=== PATIENT | female | born 1985 | race Caucasian/White ===

== ENCOUNTER 2020-06-27 10:21 | Emergency (ER) | payer SELFPAY ==
[~2020-06-27] VITALS: Ht 165.1 cm; Wt 50.0 kg
[2020-06-27] MEDS ORDERED: VIBRAMYCIN HYC100 MG PO (11:17)
[2020-06-27 11:40] VITALS: BP 116/72
== END 2020-06-27 11:38 | disposition home or self-care (01) ==
LOC: ED 10:21
DX: L72.3 Sebaceous cyst (principal); F29 Unspecified psychosis not due to a substance or known physiological condition; Z83.3 Family history of diabetes mellitus

== ENCOUNTER 2021-09-01 22:39 | Emergency (ER) | payer SELFPAY ==
[~2021-09-01] VITALS: Ht 165.1 cm; Wt 50.0 kg
[~2021-09-01 22:39] MED LIST: PREDNISONE20 M1 PO; VIBRAMYCIN HYC100 MG PO
[2021-09-02 00:15] VITALS: BP 126/78
== END 2021-09-02 00:15 | disposition home or self-care (01) ==
LOC: ED 22:39
DX: R05.9 Cough, unspecified (principal)

== ENCOUNTER 2021-09-29 03:18 | Emergency (ER) | payer SELFPAY ==
[~2021-09-29] VITALS: Ht 165.1 cm; Wt 47.7 kg
[2021-09-29] MEDS ORDERED: PROVENTIL0.09 MG/A1 IH (03:35)
[2021-09-29 04:16] LABS: HEMATOCRIT 36.9 % (37.0-47.0); HEMOGLOBIN 12.2 g/dL (12.5-16.0); MEAN CELL VOLUME 80 fl (78-100); MEAN CORPUSCULAR HEMOGLOBIN 26 pg (27-31); MEAN CORPUSCULAR HGB CONC 33 g/dL (33-37); MEAN PLATELET VOLUME 10.4 fl (7.4-10.4); PLATELET COUNT 332 K/mm3 (130-400); RED BLOOD COUNT 4.62 M/mm3 (4.10-5.30); RED CELL DISTRIBUTION WIDTH 13.7 % (11.5-14.5); WHITE BLOOD COUNT 17.4 K/mm3 (4.8-10.8)
[2021-09-29 04:25] LABS: ALBUMIN 3.6 g/dL (3.5-5.0); POTASSIUM 3.7 mmol/L (3.5-5.1)
[2021-09-29 04:28] LABS: TOTAL PROTEIN 6.9 g/dL (6.4-8.3)
[2021-09-29 04:30] LABS: TOTAL BILIRUBIN 0.4 mg/dL (0.2-1.2)
[2021-09-29 04:32] LABS: URINE APPEARANCE CLOUDY; URINE BILIRUBIN NEGATIVE (NEGATIVE); URINE BLOOD 50 ery/uL (NEGATIVE); URINE COLOR YELLOW; URINE GLUCOSE NEGATIVE (NEGATIVE); URINE KETONE NEGATIVE (NEGATIVE); URINE LEUKOCYTE ESTERASE TRACE (NEGATIVE); URINE NITRATE POSITIVE (NEGATIVE); URINE PROTEIN(semi-quant) 1+ (NEGATIVE); URINE UROBILINOGEN 8 mg/dL (NORMAL); URINE WBC 16-30 /hpf (0-3)
[2021-09-29 04:36] LABS: BAND 1 % (0-10); NEUTROPHILS 79 % (42-75)
[2021-09-29 04:37] LABS: LYMPHOCYTE 10 % (20-51); MONOCYTE 9 % (3-10)
[2021-09-29] MEDS ORDERED: CIPRO500 M1 PO (05:10)
[2021-09-29] MEDS ORDERED: RT ALBUTEROL CC18 GM IH (05:10)
[2021-09-29 06:24] VITALS: BP 94/60
== END 2021-09-29 06:24 | disposition home or self-care (01) ==
LOC: ED 03:18
PROVIDERS: Family Medicine
DX: R05.9 Cough, unspecified (principal)
CPT/HCPCS: J0696; J1885; J7030

== ENCOUNTER 2021-12-27 04:07 | Emergency (ER) | payer SELFPAY ==
[~2021-12-27] VITALS: Ht 165.1 cm; Wt 47.6 kg
[~2021-12-27 04:07] MED LIST changes: +CIPRO500 M1 PO; +PROVENTIL0.09 MG/A1 IH; +RT ALBUTEROL CC18 GM IH
[2021-12-27 04:10] VITALS: BP 108/83
[2021-12-27] MEDS ORDERED: AMOXICILLIN 50500 MG PO (05:46)
== END 2021-12-27 06:52 | disposition home or self-care (01) ==
LOC: ED 04:07
DX: S71.012A Laceration without foreign body, left hip, initial encounter (principal); J45.901 Unspecified asthma with (acute) exacerbation; K04.7 Periapical abscess without sinus; S81.812A Laceration without foreign body, left lower leg, initial encounter; F17.200 Nicotine dependence, unspecified, uncomplicated; Z76.0 Encounter for issue of repeat prescription; Z28.311 Partially vaccinated for COVID-19; W25.XXXA Contact with sharp glass, initial encounter; Y93.01 Activity, walking, marching and hiking

== ENCOUNTER 2021-12-31 00:21 | Emergency (ER) | payer SELFPAY ==
[~2021-12-31] VITALS: Ht 165.1 cm; Wt 47.6 kg
[~2021-12-31 00:21] MED LIST changes: +AMOXICILLIN 50500 MG PO
[2021-12-31 01:24] VITALS: BP 106/63
== END 2021-12-31 03:04 | disposition home or self-care (01) ==
LOC: ED 00:21
DX: J45.909 Unspecified asthma, uncomplicated (principal); M25.552 Pain in left hip; Z79.51 Long term (current) use of inhaled steroids; Z28.310 Unvaccinated for COVID-19; W30.89XA Contact with other specified agricultural machinery, initial encounter

== ENCOUNTER 2022-03-18 14:59 | Emergency (ER) | payer SELFPAY ==
[~2022-03-18] VITALS: Ht 165.1 cm; Wt 47.6 kg
[2022-03-18 15:11] VITALS: BP 96/65
== END 2022-03-18 16:23 | disposition home or self-care (01) ==
LOC: ED 14:59
DX: J45.909 Unspecified asthma, uncomplicated (principal); F17.200 Nicotine dependence, unspecified, uncomplicated; Z28.310 Unvaccinated for COVID-19

== ENCOUNTER 2022-04-26 11:42 | Emergency (ER) | payer SELFPAY ==
[2022-04-26 11:55] VITALS: BP 112/69
== END 2022-04-26 12:23 | disposition home or self-care (01) ==
LOC: ED 11:42
DX: J45.909 Unspecified asthma, uncomplicated (principal); F17.200 Nicotine dependence, unspecified, uncomplicated; Z28.310 Unvaccinated for COVID-19

== ENCOUNTER 2023-07-30 17:48 | Emergency (ER) | payer SELFPAY ==
[~2023-07-30] VITALS: Ht 165.1 cm; Wt 50.0 kg
[2023-07-30] MEDS ORDERED: PROAIR HFA0.09 MG/AC IH (19:01)
[2023-07-30 19:09] VITALS: BP 103/69
== END 2023-07-30 19:11 | disposition home or self-care (01) ==
LOC: ED 17:48
DX: A08.4 Viral intestinal infection, unspecified (principal); J45.909 Unspecified asthma, uncomplicated; F17.210 Nicotine dependence, cigarettes, uncomplicated